=== PATIENT | female | born 2000 | race Hispanic/Latino ===

== ENCOUNTER 2019-04-06 09:22 | Emergency (ER) | payer OTHER ==
[2019-04-06 10:15] LABS: APPEARANCE,URINE Clear (CLEAR); BASOPHILS % (AUTO) 0.3 % (0.0-5.0); BILIRUBIN,URINE Negative (NEGATIVE); COLOR,URINE Dark Yellow (YELLOW); EOSINOPHILS % (AUTO) 1.7 % (0.0-8.0); GLUCOSE, URINE (UA) Negative (NEGATIVE); HEMATOCRIT 37.8 % (36-48); KETONES,URINE Negative (NEGATIVE); LEUKOCYTE ESTERASE ,URINE Small (NEGATIVE); LYMPHOCYTES % (AUTO) 11.1 % (21.0-51.0); MEAN CORPUSCULAR HEMOGLOBIN 25.7 pg (27.0-33.0); MEAN CORPUSCULAR VOLUME 77.7 fL (80-100); MONOCYTES % (AUTO) 8.1 % (3.0-13.0); NEUTROPHILS % (AUTO) 78.8 % (40.0-77.0); NITRATE,URINE Negative (NEGATIVE); OCCULT BLOOD,URINE Negative (NEGATIVE); PH,URINE 5.5 (5.0-8.0); PLATELET COUNT (AUTO) 288 K/uL (130-400); PROTEIN,URINE Negative (NEGATIVE); RED BLOOD CELL COUNT(AUTO) 4.87 MIL/uL (4.00-5.50); RED CELL DISTRIBUTION WIDTH 15.3 % (11.0-15.5); WHITE BLOOD COUNT (AUTO) 6.9 K/uL (4.8-10.8)
[2019-04-06 10:21] LABS: CREATININE 0.6 mg/dL (0.5-1.5); POTASSIUM 4.1 mmol/L (3.5-5.1)
[2019-04-06 10:22] LABS: MUCUS,URINE Moderate LPF (None Seen)
[2019-04-06 10:24] LABS: WBC,URINE 0-1 /HPF (0-1)
[2019-04-06 10:25] LABS: BACTERIA,URINE Few /HPF (None Seen); RBC,URINE None Seen /HPF (0-1)
== END 2019-04-06 12:11 | disposition home or self-care (01) ==
LOC: EDH 09:22
DX: O20.0 Threatened abortion (principal); Z3A.01 Less than 8 weeks gestation of pregnancy; Z88.8 Allergy status to other drugs, medicaments and biological substances
CPT/HCPCS: 36415; 76817; 80048; 81001; 84702; 85025; 86900; 86901